=== PATIENT | male | born 1995 | race Caucasian/White ===

== ENCOUNTER 2018-01-05 17:50 | Emergency (ER) | payer SELFPAY ==
[~2018-01-05] VITALS: Ht 157.5 cm; Wt 50.3 kg
[2018-01-05 18:02] VITALS: Ht 157.5 cm; Wt 50.3 kg
[2018-01-05 18:26] VITALS: BP 132/75
== END 2018-01-05 18:26 | disposition home or self-care (01) ==
LOC: ED 17:50
DX: S60.041A Contusion of right ring finger without damage to nail, initial encounter (principal); X58.XXXA Exposure to other specified factors, initial encounter; Y93.89 Activity, other specified; Y92.89 Other specified places as the place of occurrence of the external cause; Y99.8 Other external cause status
CPT/HCPCS: Q0092

== ENCOUNTER 2020-02-06 10:18 | Emergency (ER) | payer SELFPAY ==
[~2020-02-06] VITALS: Ht 167.6 cm; Wt 53.5 kg
[2020-02-06 10:22] VITALS: BP 108/64; Ht 167.6 cm; Wt 53.5 kg
== END 2020-02-06 11:55 | disposition home or self-care (01) ==
LOC: ED 10:18
DX: S06.0X0A Concussion without loss of consciousness, initial encounter (principal); W22.8XXA Striking against or struck by other objects, initial encounter; Y93.89 Activity, other specified; Y92.89 Other specified places as the place of occurrence of the external cause; Y99.8 Other external cause status; B07.9 Viral wart, unspecified